=== PATIENT | male | born 1980 | race Hispanic/Latino ===

== ENCOUNTER 2019-06-02 13:54 | Emergency (ER) | payer OTHER ==
[~2019-06-02] VITALS: Ht 188 cm; Wt 86.2 kg
--- NOTE | 2019-06-02 14:10 | NUR ---
[facility]IV[facility] PT ARRIVED TO ER AMBULATORY WITH C/O COUGH, CONGESTION, FEVER, SORE THROAT X7 DAYS. DR DOHERTY AT BEDSIDE. BED IN LOW LOCKED POSITION. CALL LIGHT WITHIN REACH. SPOUSE AT BEDSIDE.
[2019-06-02 14:17] VITALS: BP 131/70
[2019-06-02] MEDS ORDERED: DECADRON IH STA (14:28)
[2019-06-02] MEDS ORDERED: DUONEB 0.5 MG-3 MG/3 ML SOLN IH STA (14:28)
[2019-06-02] MEDS ORDERED: PREDNISONE PO STA (14:29)
[2019-06-02] MEDS ORDERED: PREDNISONE ONE (14:50)
[2019-06-02] MEDS ORDERED: DECADRON ONE (14:53)
[2019-06-02] MEDS ORDERED: DUONEB 0.5 MG-3 MG/3 ML SOLN IH ONE (14:53)
--- NOTE | 2019-06-02 15:00 | ER.PDOC ---
General Chief Complaint: Cough/Congestion Stated Complaint: COUGH,CONGESTION Time seen by MD: 15:00 Source: patient Exam Limitations: no limitations History of Present Illness Timing/Duration: 1 week Severity/Quality: moderate Radiation: no radiation Associated Symptoms: chest pain, fever/chills Exacerbated by: cough, deep breaths Relieved By: remaining still Vital Signs First Vital Signs Date Time Temp Pulse Resp B/P (MAP) Pulse Ox O2 Delivery O2 Flow Rate FiO2 06/02/19 14:12 98.8 83 18 98 Room Air 98.8 06/02/19 14:17 131/70 (90) Last Vital Signs Date Time Temp Pulse Resp B/P (MAP) Pulse Ox O2 Delivery O2 Flow Rate FiO2 06/02/19 14:17 98.8 83 18 131/70 (90) 98 Room Air 98.8 Past Medical History Medical History: no pertinent history Surgical History: no surgical history Family History Significant Family History: no pertinent family hx Social History Smoking: less than 1 pack/day Alcohol Use: occassionally Drug Use: none Reviewed Nursing Reviewed: Vital Signs, Abn. Noted Constitutional: chills EENTM: nose pain, nose congestion, throat pain Respiratory: cough, shortness of breath, SOB with exertion, SOB at rest, wheezing All Other Systems: Reviewed and Negative Physical Exam General Appearance: No Apparent Distress, WD/WN HEENT: Pharyngeal Erythema Neck: Non-Tender, Full Range of Motion, Supple, Normal Inspection Respiratory: rhonchi, wheezing Cardiovascular: Tachycardia Gastrointestinal: Normal Bowel Sounds, Non Tender, Soft Back: Normal Inspection, No CVA Tenderness, No Vertebral Tenderness Extremities: Normal Range of Motion, Non-Tender, Normal Inspection, No Pedal Edema, No Calf Tenderness, Normal Capillary Refill, Pelvis Stable Neurologic/Psychiatric: head of partner development II-XII NML as Tested, No Motor/Sensory Deficits, Alert, Normal Mood/Affect, Oriented x 3 Skin: Normal Color, Warm/Dry Lymphatic: No Adenopathy Results/Orders Results/Orders Orders - MADISON DOHERTY MD Ipratropium/Albuterol Sulfate (Duoneb 0. (06/02/19 14:28) Dexamethasone Sod Phosphate (Decadron) (06/02/19 14:28) Prednisone (Prednisone) (06/02/19 14:29) Prednisone (Prednisone) (06/02/19 14:50) Ipratropium/Albuterol Sulfate (Duoneb 0. (06/02/19 14:53) Dexamethasone Sod Phosphate (Decadron) (06/02/19 14:53) Vital Signs Date Time Temp Pulse Resp B/P (MAP) Pulse Ox O2 Delivery O2 Flow Rate FiO2 06/02/19 14:17 98.8 83 18 131/70 (90) 98 Room Air 98.8 06/02/19 14:12 98.8 83 18 98.8 06/02/19 14:12 98.8 83 18 98 Room Air 98.8 Administered Medications Medications (Trade) Dose Ordered Sig/Rosario Route PRN Reason Start Time Stop Time Status Last Admin Dose Admin Albuterol/ Ipratropium (Duoneb 0.5 Mg-3 Mg/3 ml Soln) 3 ml STAT STAT IH 06/02/19 14:28 06/02/19 14:30 DC 06/02/19 14:58 3 ML Dexamethasone Sodium Phosphate (Decadron) 4 mg STAT STAT IH 06/02/19 14:28 06/02/19 14:30 DC 06/02/19 14:57 4 MG Prednisone (Prednisone) 40 mg STAT STAT PO 06/02/19 14:29 06/02/19 14:30 DC 06/02/19 14:50 40 MG Course Sepsis Screening Results: Posi: POSITIVE SEPSIS RISK Vitals & review Data Vital Sign - Last 24 Hours 06/02/19 06/02/19 06/02/19 14:12 14:12 14:17 Temp 98.8 98.8 98.8 98.8 98.8 98.8 Pulse 83 83 83 Resp 18 18 18 B/P (MAP) 131/70 (90) Pulse Ox 98 98 O2 Delivery Room Air Room Air Sepsis Infection Criteria Pres: Suspected Infection O2 Sat by Pulse Oximetry: 98 Departure Time of Disposition: 15:22 Disposition: 01 HOME, SELF-CARE Impression: Primary Impression: Acute bronchitis Condition: Improved Referrals: PCP,UNKNOWN (PCP) PRIMARY CARE PROVIDER Duration or Time Spent with Pa: 16 MIN MADISON DOHERTY MD Jun 02, 2019 15:00
--- NOTE | 2019-06-02 15:28 | DIREP ---
PROCEDURE:CHEST 1 VIEW COMPARISON:None. INDICATIONS:COUGH, DYSPNEA, RONCHI FINDINGS: LUNGS/PLEURA:No significant pulmonary parenchymal abnormalities. No effusions. VASCULATURE:Normal. Unremarkable pulmonary vasculature. CARDIAC:Normal. No cardiac silhouette abnormality or cardiomegaly. MEDIASTINUM:Normal. No visible mass or adenopathy. BONES:Normal. No fracture or visible bony lesion. OTHER:Negative. CONCLUSION:Normal examination. Dictated by: Dell Morales M.D. on 06/02/2019 at 03:27 PM
[2019-06-02 15:33] VITALS: BP 131/70
== END 2019-06-02 15:47 | disposition home or self-care (01) ==
LOC: ER 13:54
DX: J20.9 Acute bronchitis, unspecified (principal); F17.200 Nicotine dependence, unspecified, uncomplicated; R07.9 Chest pain, unspecified
CPT/HCPCS: 71045; 94640; 99283; J1100; J7512; J7620